=== PATIENT | female | born 1990 | race Caucasian/White ===

== ENCOUNTER 2024-02-28 12:25 | Emergency (ER) | payer BC ==
[~2024-02-28] VITALS: Ht 170.2 cm; Wt 85.3 kg
[2024-02-28 12:28] VITALS: BP_SYST 130; PULSE 69; RESP 16; TEMP 97.2; O2SAT 97
[2024-02-28 13:28] VITALS: BP_SYST 130; PULSE 69; RESP 16; TEMP 97.2; O2SAT 97
== END 2024-02-28 13:29 | disposition home or self-care (01) ==
LOC: SED 12:25
DX: S06.0X0A Concussion without loss of consciousness, initial encounter (principal); W22.8XXA Striking against or struck by other objects, initial encounter; Y93.89 Activity, other specified; Y92.89 Other specified places as the place of occurrence of the external cause; Y99.8 Other external cause status
CPT/HCPCS: 99283